=== PATIENT | female | born 1970 | race Caucasian/White ===

== ENCOUNTER → 2023-01-13 | Day surgery (SDC) | payer BC ==
[~2023-01-13] MED LIST: FIORICET 50-301 EACH PO; LACTATED RINGER'S 1,000 ML ONE; LIDOCAINE HCL 2% LOCAL INJ 5 ML SDV VIAL INJ ONE; PROPOFOL IV EMULSION 10 MG/ML 20 ML VIAL ONE; PROPOFOL IV EMULSION 50 ML IV ONE
[2023-01-13 07:17] VITALS: TEMP 98.8
[2023-01-13 07:45] VITALS: BP 106/76; PULSE 71; RESP 16; O2SAT 99
== END | disposition home or self-care (01) ==
LOC: OR 05:40
PROVIDERS: ATTEND Internal Medicine Gastroenterology
DX: Z12.11 Encounter for screening for malignant neoplasm of colon (principal); Z78.9 Other specified health status; Z01.810 Encounter for preprocedural cardiovascular examination
CPT/HCPCS: 45378; 93005; J2001; J2704 ×2; J7121